=== PATIENT | female | born 1995 | race Caucasian/White ===

== ENCOUNTER 2024-02-23 17:36 | Emergency (ER) | payer OTHER, SELFPAY ==
[2024-02-23 17:40] VITALS: BP 139/87; PULSE 95; RESP 12; TEMP 36.8; O2SAT 99; BMI 27.7
--- NOTE | 2024-02-23 17:43 | DI.US.S_ITS ---
PROCEDURE: US PELVIC COMPLETE INDICATIONS: bleeding, pain/cramping LMP 01/21/24 TECHNIQUE: Real-time scanning was performed of the pelvic organs, with image documentation. Additional endovaginal scanning was necessary due to incomplete visualization of the adnexal and endometrial structures by transabdominal scanning. COMPARISON: None. FINDINGS: Uterus: Uterus is retroverted and normal in size at 7.4 x 6.4 x 4.7 cm. The myometrium is homogeneous. The endometrium measures 20 mm combined thickness. Thickened endometrium with small amount of fluid in the inferior portion. Anechoic structure within the endometrium measuring up to 3 millimeters, this is nonspecific and if it correlates with a gestational sac would be consistent with 4 weeks and 6 days. Ovaries: The right ovary measures 3.3 x 1.8 x 2.2 cm, with a calculated ovarian volume of 6.8 cc. The left ovary measures 3.8 x 2.7 x 2.4 cm, with a calculated ovarian volume of 12.9 cc. Thick-walled corpus luteal cyst in the left ovary measuring 2.0 centimeters. The ovaries have a normal sonographic appearance. Less than 12 follicles can be seen in each ovary. No adnexal masses are seen. Other: No pathologic free abdominal or pelvic fluid. Small free fluid, likely physiologic. IMPRESSION: Thickened endometrium measuring 20 millimeters. There is an anechoic structure within the endometrium measuring up to 3 millimeters, nonspecific and if this correlates with a gestational sac, this would be consistent with 4 weeks and 6 days. Recommend clinical correlation and follow-up. Possible left ovarian corpus luteal cyst measuring 2 centimeters. The ovaries are otherwise normal in appearance. We strive to produce accurate, complete, and clear reports of imaging services. To assist us in improving patient care, this report was composed using standard report templates and voice recognition software. Therefore, it may contain abnormal punctuation, insertions and/or omissions. Occasional wrong-word or sound-alike substitutions may occur. Though we review the report and make efforts to correct it, we do recommend that the report be read carefully in proper context to recognize any text inaccuracies. Dictated by: Boris Davis M.D. on 02/23/2024 at 19:03 Approved by: Boris Davis M.D. on 02/23/2024 at 19:06
[2024-02-23 18:16] LABS: Add Manual Diff / Slide Review NO; Basophils Absolute Auto 100 /uL (0-100); Basophils Percent Auto 0.8 % (0-2); Eosinophils Absolute Auto 100 /uL (0-450); Eosinophils Percent Auto 1.5 % (2-4); Hematocrit 40.6 % (36-46); Lymphocytes Absolute Auto 2500 /uL (1100-4500); Lymphocytes Percent Auto 28.7 % (25-40); Mean Corpuscular HGB Conc 34.6 % (30-36); Mean Corpuscular Hemoglobin 30.2 PG (26-34); Mean Corpuscular Volume 87.4 fL (80-100); Monocytes Absolute Auto 700 /uL (0-900); Monocytes Percent Auto 8.2 % (3-14); Neutrophils Absolute Auto 5200 /uL (1500-7000); Neutrophils Percent Auto 60.8 % (50-75); Platelet Count 259 X10^3/uL (150-400); Red Blood Cell Count 4.64 X10^6/uL (4.0-5.2); White Blood Cell Count 8.5 X10^3/uL (4.5-11.0)
[2024-02-23 18:33] LABS: Alanine Aminotransferase 16 IU/L (<35); Albumin 4.7 g/dL (3.5-5.0); Albumin Globulin Ratio 1.5 (1.0-2.8); Alkaline Phosphatase 63 U/L (38-126); Aspartate Aminotransferase 25 IU/L (14-36); BUN Creatinine Ratio 16.4 (6-22); Bilirubin Total 0.5 mg/dL (0.2-1.3); Blood Urea Nitrogen 10 mg/dL (7-17); Calcium 9.2 mg/dL (8.4-10.2); Carbon Dioxide 23 mmol/L (22-32); Chloride 105 mmol/L (98-107); Estimated Glomerular Filt Rate > 60 mL/min (>60); Globulin 3.1 g/dL (1.7-4.1); Glucose 104 mg/dL (70-100); HEMOLYSIS < 15 (0-50); Potassium 4.3 mmol/L (3.4-5.1); Sodium 137 mmol/L (137-145); Total Protein 7.8 g/dL (6.3-8.2)
[2024-02-23 18:50] LABS: HCG Quantitative /Beta subunit 327.73 mIU/mL
[2024-02-23 20:55] VITALS: BP 120/56; PULSE 89; RESP 18; TEMP 36.6; O2SAT 98
--- NOTE | 2024-02-23 23:08 | PC.NURSE ---
Assumed care from MEGHANN Stevens at this time. Updated pt on plan of care, understands Is frustrated with how long it is taking to receive results. Encouraged to express feelings.
--- NOTE | 2024-02-23 23:09 | ED_ITS ---
HPI - General Chief complaint: OB/Uterine Contractions Stated complaint: sent by JIM to rule out ectopic prgncy Time Seen by Provider: 02/23/24 21:41 Source: patient, RN notes reviewed and old records reviewed Mode of arrival: Ambulatory Limitations: no limitations History of Present Illness HPI Narrative: 28-year-old female proximally 4 weeks by dates last menstrual period of 01/21/2024 who presents with dark brown spotting and some mild cramping since Tuesday. Patient went to the clinic [facility] and was told to come here to rule out ectopic. She states no other symptoms. She states some mild cramping. Patient denies any other symptoms. She has not established with OB/Gynecology. Related Data Allergies Allergy/AdvReac Type Severity Reaction Status Date / Time No Known Drug Allergies Allergy Verified 02/23/24 17:43 Review of Systems Review of Systems ROS Unobtainable: All systems reviewed & are unremarkable except as noted in HPI and below Exam Narrative Exam Narrative: GENERAL: Alert and oriented x three, female in mild distress HEENT: Head normocephalic, atraumatic, EOMI, pupils reactive, face symmetric, moist mucous membranes NECK: Supple, full range of motion CARDIOVASCULAR: Regular rate and rhythm without murmurs, rubs or gallops. RESPIRATORY: Breath sounds equal bilaterally, no wheezes rales or rhonchi. ABDOMEN: Soft, nontender. Normoactive bowel sounds all 4 quadrants. No guarding or rebound, rigidity, no mass : No CVA tenderness EXTREMITIES: Normal range of motion, no clubbing or edema. Neurovascularly intact NEUROLOGICAL: Cranial nerves II through XII grossly intact. Moving all extremities SKIN: Warm, dry, no petechiae, no rashes or lesions. Initial Vital Signs Initial Vital Signs: Vital Signs Temperature 98.2 F 02/23/24 17:40 Pulse Rate 95 H 02/23/24 17:40 Respiratory Rate 12 02/23/24 17:40 Blood Pressure 139/87 02/23/24 17:40 Pulse Oximetry 99 02/23/24 17:40 Oxygen Delivery Method Room Air 02/23/24 17:40 Course Orders Ordered: ED Orders 02/23/24 22:45 Urine Culture Stat Urine Microscopic Stat Vital Signs Vital signs: Vital Signs - 8 hr 02/23/24 23:28 Temperature 98.4 F Pulse Rate 65 Respiratory Rate 15 Blood Pressure 126/87 Pulse Oximetry 98 Oxygen Delivery Method Room Air MDM - OB/Uterine Contractions Lab Data 02/23/24 17:59 02/23/24 17:59 Labs: Lab Results 02/23/24 02/23/24 Range/Units 17:59 22:45 WBC 8.5 (4.5-11.0) X10^3/uL RBC 4.64 (4.0-5.2) X10^6/uL Hgb 14.0 (12.0-16.0) g/dL Hct 40.6 (36-46) % MCV 87.4 (80-100) fL MCH 30.2 (26-34) PG MCHC 34.6 (30-36) % RDW 13.0 (11.6-14.8) % Plt Count 259 (150-400) X10^3/uL Neut % (Auto) 60.8 (50-75) % Lymph % (Auto) 28.7 (25-40) % Hart % (Auto) 8.2 (3-14) % Eos % (Auto) 1.5 L (2-4) % Baso % (Auto) 0.8 (0-2) % Neut # (Auto) 5200 (4998-8636) /uL Lymph # (Auto) 2500 (1774-1596) /uL Hart # (Auto) 700 (0-900) /uL Eos # (Auto) 100 (0-450) /uL Baso # (Auto) 100 (0-100) /uL Sodium 137 (137-145) mmol/L Potassium 4.3 (3.4-5.1) mmol/L Chloride 105 (98-107) mmol/L Carbon Dioxide 23 (22-32) mmol/L BUN 10 (7-17) mg/dL Creatinine 0.61 (0.52-1.04) mg/dL Estimated GFR > 60 (>60) mL/min BUN/Creatinine Ratio 16.4 (6-22) Glucose 104 H (70-100) mg/dL Calcium 9.2 (8.4-10.2) mg/dL Total Bilirubin 0.5 (0.2-1.3) mg/dL AST 25 (14-36) IU/L ALT 16 (<35) IU/L Alkaline Phosphatase 63 (38-126) U/L Total Protein 7.8 (6.3-8.2) g/dL Albumin 4.7 (3.5-5.0) g/dL Globulin 3.1 (1.7-4.1) g/dL Albumin/Globulin Ratio 1.5 (1.0-2.8) HCG, Quant 327.73 mIU/mL Urine RBC None seen (0-5/HPF) Urine WBC 0-1/hpf (0-5/HPF) Ur Squamous Epith Cells None seen (0-5/HPF) Urine Bacteria Moderate (10-30) H (None) Vol Urine Centrifuged 10ml (spun) Blood Type O Positive Antibody Screen Negative Urine Dip Bedside Urine Glucose Negative Bedside Urine Bilirubin - Negative Bedside Urine Ketone - Negative Urine Specific [place] 1.015 Bedside Urine Occult Blood +/- Bedside Urine pH 6.0 Bedside Urine Protein - Negative Bedside Urine Urobilinogen - Negative Bedside Urine Nitrite - Negative Bedside Urine Leukocytes - Negative Esterase Imaging Data US - OB: Radiologist's Impression: Anneliese Montoya I??28??F??1995 ? Allergy/Adv: No Known Drug Allergies (More??) Close Pelvis Ultrasound (Signed) Boris Davis - 02/23/24 Ultrasound (Cancelled) 02/23/24 [place] [address] Ultrasound Report Signed Patient: Anneliese Montoya I MR#: [id number] : 1995 Acct:[id number] Age/Sex: 28 / F Date of Service: 02/23/24 Loc: ED Accession Number: [id number] Procedure: US pelvic complete Ordering Provider: Mya Rios D.O. PROCEDURE: US PELVIC COMPLETE INDICATIONS: bleeding, pain/cramping LMP 01/21/24 TECHNIQUE: Real-time scanning was performed of the pelvic organs, with image documentation. Additional endovaginal scanning was necessary due to incomplete visualization of the adnexal and endometrial structures by transabdominal scanning. COMPARISON: None. FINDINGS: Uterus: Uterus is retroverted and normal in size at 7.4 x 6.4 x 4.7 cm. The myometrium is homogeneous. The endometrium measures 20 mm combined thickness. Thickened endometrium with small amount of fluid in the inferior portion. Anechoic structure within the endometrium measuring up to 3 millimeters, this is nonspecific and if it correlates with a gestational sac would be consistent with 4 weeks and 6 days. Ovaries: The right ovary measures 3.3 x 1.8 x 2.2 cm, with a calculated ovarian volume of 6.8 cc. The left ovary measures 3.8 x 2.7 x 2.4 cm, with a calculated ovarian volume of 12.9 cc. Thick-walled corpus luteal cyst in the left ovary measuring 2.0 centimeters. The ovaries have a normal sonographic appearance. Less than 12 follicles can be seen in each ovary. No adnexal masses are seen. Other: No pathologic free abdominal or pelvic fluid. Small free fluid, likely physiologic. IMPRESSION: Thickened endometrium measuring 20 millimeters. There is an anechoic structure within the endometrium measuring up to 3 millimeters, nonspecific and if this correlates with a gestational sac, this would be consistent with 4 weeks and 6 days. Recommend clinical correlation and follow-up. Possible left ovarian corpus luteal cyst measuring 2 centimeters. The ovaries are otherwise normal in appearance. We strive to produce accurate, complete, and clear reports of imaging services. To assist us in improving patient care, this report was composed using standard report templates and voice recognition software. Therefore, it may contain abnormal punctuation, insertions and/or omissions. Occasional wrong-word or sound-alike substitutions may occur. Though we review the report and make efforts to correct it, we do recommend that the report be read carefully in proper context to recognize any text inaccuracies. Dictated by: Boris Davis M.D. on 02/23/2024 at 19:03 Approved by: Boris Davis M.D. on 02/23/2024 at 19:06 [facility] Narrative Medical decision making narrative: 28-year-old female last menstrual period was 01/20, by dates patient is 4weeks, 5 days. Shows CBC with a white count of 8.5 hemoglobin of 14 platelets of 259, chemistries are normal glucose is 104 hCG is 327. Patient is O-positive. Point of care urine shows blood, microscopy shows Ultrasound shows thickened endometrium measuring 20 mm anechoic structure measuring up to 3 mm nonspecific and if this correlates with gestational sac would be consistent with a 4 weeks and 6 days possible left ovarian corpus luteal cyst measuring 2 cm ovaries are otherwise normal in appearance. Plan for follow up with ip counsel for recheck and repeat hCG in 24-48 hours. Discussed with patient return precautions and need for follow-up. Pelvic rest. Discharge Plan Departure Patient Disposition: Home Clinical Impression: Vaginal bleeding in Instructions: DI for Vaginal Bleeding During Activity Restrictions/Additional Instructions: Follow up with OBGYN for recheck, call 1st thing tomorrow morning to set up follow up appointment. Contact is included below. You should have a repeat hCG level in 24-48 hours. Your hCG level today was 327 mIU/mL You can take Tylenol up to a 1000 mg every 6 hours as needed for cramping or discomfort. You can use pads but avoid using tampons. No heavy lifting or sexual activity. Please return for rapidly worsening pain, going through more than a pad an hour, lightheadedness or passing out, persistent vomiting or other new or concerning changes. Referrals: Cynthia Ricardo MD [Physician] - Provider,Ann-Marie FERNANDEZ [Primary Care Provider] - Stand Alone Forms: Patient Portal/API
[2024-02-23 23:11] LABS: Bacteria Urine Moderate (10-30); RBC Urine None Seen (0-5/HPF); Squamous Epithelial Cell Urine None Seen (0-5/HPF); Urine Volume 10mL (spun); WBC Urine 0-1/HPF (0-5/HPF)
[2024-02-23 23:28] VITALS: BP 126/87; PULSE 65; RESP 15; TEMP 36.9; O2SAT 98
== END 2024-02-23 23:29 | disposition home or self-care (01) ==
PROVIDERS: Emergency Medicine; Emergency Provider Emergency Medicine
DX: O20.9 Hemorrhage in early pregnancy, unspecified (principal); Z3A.01 Less than 8 weeks gestation of pregnancy
CPT/HCPCS: 76856; 80053; 81003; 81015; 84702; 85025; 86850; 86900; 86901; 87086; 99282; 99284

== ENCOUNTER → 2024-02-25 10:41 | Outpatient (CLI) | payer OTHER, SELFPAY ==
[2024-02-25 12:24] LABS: HCG Quantitative /Beta subunit 659.48 mIU/mL
== END ==
PROVIDERS: Referring Provider Obstetrics & Gynecology; Visit Provider Obstetrics & Gynecology
DX: O46.90 Antepartum hemorrhage, unspecified, unspecified trimester (principal)
CPT/HCPCS: 36415; 84702

== ENCOUNTER → 2024-02-27 17:05 | Outpatient (CLI) | payer OTHER, SELFPAY ==
[2024-02-27 18:01] LABS: HCG Quantitative /Beta subunit 1910.4 mIU/mL
== END ==
PROVIDERS: Referring Provider Obstetrics & Gynecology; Visit Provider Obstetrics & Gynecology
DX: O46.90 Antepartum hemorrhage, unspecified, unspecified trimester (principal)
CPT/HCPCS: 36415; 84702

== ENCOUNTER → 2024-03-26 15:10 | Outpatient (CLI) | payer OTHER, SELFPAY ==
[2024-03-26 18:35] LABS: Urine N gonorrhoeae NOT DETECTED
[2024-03-26 18:48] LABS: Urine Chlamydia NOT DETECTED
== END ==
PROVIDERS: Visit Provider Specialist
DX: Z11.3 Encounter for screening for infections with a predominantly sexual mode of transmission (principal); Z3A.09 9 weeks gestation of pregnancy
CPT/HCPCS: 87491; 87591

== ENCOUNTER → 2024-04-26 09:25 | Outpatient (CLI) | payer OTHER, SELFPAY ==
[2024-04-26 11:03] LABS: Add Manual Diff / Slide Review NO; Basophils Absolute Auto 0 /uL (0-100); Basophils Percent Auto 0.2 % (0-2); Eosinophils Absolute Auto 0 /uL (0-450); Eosinophils Percent Auto 0.4 % (2-4); Hematocrit 32.5 % (36-46); Lymphocytes Absolute Auto 1600 /uL (1100-4500); Mean Corpuscular HGB Conc 36.9 % (30-36); Mean Corpuscular Hemoglobin 31.5 PG (26-34); Mean Corpuscular Volume 85.3 fL (80-100); Monocytes Absolute Auto 600 /uL (0-900); Monocytes Percent Auto 5.6 % (3-14); Natera Collection Specimen Collected; Neutrophils Absolute Auto 8400 /uL (1500-7000); Neutrophils Percent Auto 78.8 % (50-75); Platelet Count 268 X10^3/uL (150-400); Red Blood Cell Count 3.81 X10^6/uL (4.0-5.2); Red Cell Distribution Width 13.2 % (11.6-14.8); White Blood Cell Count 10.6 X10^3/uL (4.5-11.0)
[2024-04-26 11:39] LABS: Free T4, Direct Thyroxine 0.97 ng/dL (0.78-2.19)
[2024-04-26 11:53] LABS: Thyroid Stimulating Hormone 1.64 uIU/mL (0.47-4.68)
[2024-04-26 12:59] LABS: Iron 97 ug/dL (37-170)
[2024-04-26 15:00] LABS: Hepatitis B Surface Antigen NEGATIVE s/c (NEGATIVE)
[2024-04-26 15:20] LABS: HIV 1 & 2 Ab/Ag 4th Gen Combo NEGATIVE (NEGATIVE); Hep C Virus Ab w/Reflex Quant NEGATIVE s/c (NEGATIVE)
[2024-04-27 06:04] LABS: RPR Screen Non Reactive (Non Reactive)
[2024-04-27 08:36] LABS: Varicella IgG Antibody 253 index (Immune >165)
== END ==
PROVIDERS: Specialist; Referring Provider Obstetrics & Gynecology; Visit Provider Obstetrics & Gynecology
DX: O30.031 Twin pregnancy, monochorionic/diamniotic, first trimester (principal); Z80.8 Family history of malignant neoplasm of other organs or systems; Z3A.13 13 weeks gestation of pregnancy
CPT/HCPCS: 36415; 80055; 83540; 84439; 84443; 86787; 86803; 86850; 86900; 86901; 87389

== ENCOUNTER → 2024-06-08 09:21 | Outpatient (CLI) | payer OTHER, SELFPAY ==
[2024-06-11 13:36] LABS: AFP Value 129.4 ng/mL (.); Gest Age on Col Date 19.9 weeks (.); Insulin Dep Diabetes No (.); OSBR Risk 1IN 771 (.); Results Report (.); Test Results *Screen Negative* (.)
== END ==
PROVIDERS: Referring Provider Obstetrics & Gynecology; Visit Provider Obstetrics & Gynecology
DX: Z34.82 Encounter for supervision of other normal pregnancy, second trimester (principal); Z3A.19 19 weeks gestation of pregnancy
CPT/HCPCS: 36415; 82105

== ENCOUNTER → 2024-07-13 10:07 | Outpatient (CLI) | payer OTHER, SELFPAY ==
[2024-07-13 11:42] LABS: Appearance Urine UA CLEAR; Bilirubin Urine UA NEGATIVE (NEGATIVE); Color Urine UA YELLOW; Glucose Urine UA NEGATIVE (Negative); Ketones Urine UA NEGATIVE (NEGATIVE); Leukocyte Esterase Urine UA 2+ (NEGATIVE); Nitrite Urine UA NEGATIVE (Negative); Occult Blood Urine UA NEGATIVE (Negative); Protein Urine UA NEGATIVE (Negative); Specific Gravity Urine UA <=1.005 (1.000-1.035); Urobilinogen Urine UA 0.2 E.U./dL (0.2)
[2024-07-13 12:01] LABS: pH Urine UA 6.5 (4.5-8.0)
[2024-07-13 12:07] LABS: Bacteria Urine Few (2-10); Culture Indicated Urine Cult Not Indicated; RBC Urine 1-5/HPF (0-5/HPF); Squamous Epithelial Cell Urine 10-30 /HPF (0-5/HPF); Urine Volume 10mL (spun); WBC Urine 10-30/HPF (0-5/HPF)
[2024-07-13 12:24] LABS: Hematocrit 28.4 % (36-46)
[2024-07-13 12:47] LABS: GTT (PREG) 1 Hour PP 50gm Dose 146 mg/dL (76-139)
== END ==
PROVIDERS: Referring Provider Obstetrics & Gynecology; Visit Provider Obstetrics & Gynecology
DX: Z34.02 Encounter for supervision of normal first pregnancy, second trimester (principal); R39.15 Urgency of urination; R30.9 Painful micturition, unspecified; Z3A.26 26 weeks gestation of pregnancy
CPT/HCPCS: 36415; 81001; 82950; 85014; 85018

== ENCOUNTER → 2024-07-16 08:03 | Outpatient (CLI) | payer OTHER, SELFPAY ==
[2024-07-16 09:22] LABS: Glucose Fasting Gestational 73 mg/dL (76-95)
[2024-07-16 09:55] LABS: Glucose 1 Hour Gest 181 mg/dL (76-180)
[2024-07-16 11:01] LABS: Glucose 2 Hour Gest 157 mg/dL (76-155)
[2024-07-16 11:48] LABS: Glucose Tol Interp,Gestational INTERPRETATION
[2024-07-16 11:54] LABS: Glucose 3 Hour Gest 141 mg/dL (76-140)
== END ==
PROVIDERS: Referring Provider Obstetrics & Gynecology; Visit Provider Obstetrics & Gynecology
DX: O99.810 Abnormal glucose complicating pregnancy (principal)
CPT/HCPCS: 36415; 82951; 82952

== ENCOUNTER → 2024-07-24 07:32 | Outpatient (CLI) | payer OTHER, SELFPAY ==
--- NOTE | 2024-07-24 15:02 | DIAB.GDA ---
Initial Gestational Diabetes Assessment Name: Anneliese Montoya I Date: 07/24/24 Time: 735-830a Dx: Gestational Diabetes Provider: Davion/Costa STEFANIE: 10/27/24 Weeks: 26 Anneliese presents for initial visit. PMH reported includes PCOS as a teen and adult, and insulin resistance as a teenager with Metformin therapy. Metformin d/c'd 4-5 months after start around age 14-15y/o. Endorses FH of insulin resistance, unclear if PDM or DM. Anneliese's spouse is in the , and they are moving to [place] next week. This will be our only visit. She is with twins. Diet recall: 830a: coffee black, milk, oatmeal OR milk with ww cereal, fruit OR eggs with ww indonesian muffin 1030-1130a: string cheese with apples and nuts 12-130p: 1c pasta with veg and protein OR salad with meat and cheese 4-430p: pb or string cheese or fruit 6p-730p: protein and veg OR pasta and protein 9p: cookie OR Bel[place]ian yogurt with nuts and granola OR vanilla ice cream water, sparkling water, coffee, may share soda when eating out with Sometimes donuts at breakfast. Anthropometrics: Ht: 62 Wt: 164# Prepregnancy wt: 154# Physical Activity: No program pre and worries about starting one now. Tries to reduce sedentary time. Tries to move more at home and while grocery shopping. Self-Monitoring Blood Glucose: Started checking FBG and 1 hour. FBG all in goal. 1/7 elevated pc breakfast reading after high CHO intake of banana and donut. 2/7 elevated pc lunch readings also after high CHO intake. All pc dinner readings currently in goal. Date Pre Post Pre Post Pre Post HS 07/17 72 70 95 95 07/18 76 95 149 1h 113 2h 98 1h 94 2h 07/19 73 129 97 100 07/20 79 90 90 95 07/21 80 77 138 112 07/22 80 70 88 110 07/23 77 93 94 101 07/24 70 Diabetes Medications: none Pertinent Labs: Screen: 146 OGTT: 73, 181 H, 157 H, 141 H Nutrition Rx: Carbohydrates: Meal: 45-60g lunch and dinner; 30-45g breakfast Snack: 15-30g Nutrition Diagnosis: Altered nutrition related lab value r/t GDM dx aeb recent OGTT Excessive CHO intake r/t new dx and no previous MNT aeb pt report, elevated pc BG and diet recall Intervention: This participant was very receptive. Provided appropriate educational handouts. Discussed the following topics: GDM pathophysiology and impact of hyperglycemia on mom and baby Risk for T2DM for mom and baby in the future Ways to reduce risk T2DM Plate Method, meal timing, carb counting, pairing macronutrients and spreading out CHO for better BG management Blood glucose goals (FBG: <95 and 1 hour <140 mg/dL or 2 hour <120 mg/dl); importance of checking 4x per day (FBG and pc) Impact of macronutrients on blood glucose Recommended servings for carbohydrates at meals and snacks Brainstormed appropriate meal plan based on her food preferences Role of physical activity and following provider guidelines for safety Recent blood sugar results and impact of food and hormones Review of macronutrient recommendations during Benefits, resources, and nutrition for recommendations for nutrition and physical activity recommendations for T2DM risk reduction OGTT at 6-12 weeks Checking blood sugars twice per week (goal: fasting <100 mg/dL and 2 hour pc <140 mg/dL) until 6 week checkup HgA1c q 1-3 years. Goals: Send BG in one and two weeks Keep meals within carb recs If OB agrees, incorporate 10 min activity after larger meals Follow-up: ELEUTERIO OLIVIA follow-up in one week via messaging. Anneliese plans to establish care in [place] after next week's move. Encouraged her to reach out to this RD with questions or BG checks until that time. She agreed. Jelena Zamora RDN, [facility] Certified Diabetes Care and [employer] Time Sales Supervisor T: [phone] F: [phone] [email or web address] Thank you for this referral
== END ==
PROVIDERS: Referring Provider Obstetrics & Gynecology
DX: O24.419 Gestational diabetes mellitus in pregnancy, unspecified control (principal); O26.892 Other specified pregnancy related conditions, second trimester; E88.819 Insulin resistance, unspecified; Z3A.26 26 weeks gestation of pregnancy; Z71.3 Dietary counseling and surveillance
CPT/HCPCS: 97802

== ENCOUNTER → 2024-07-27 12:14 | Outpatient (CLI) | payer OTHER, SELFPAY ==
[2024-07-27 12:39] LABS: Hematocrit 29.2 % (36-46); Hemoglobin 10.2 g/dL (12.0-16.0); Mean Corpuscular Hemoglobin 31.5 PG (26-34); Platelet Count 242 X10^3/uL (150-400); Red Blood Cell Count 3.24 X10^6/uL (4.0-5.2); Red Cell Distribution Width 14.3 % (11.6-14.8); White Blood Cell Count 12.9 X10^3/uL (4.5-11.0)
[2024-07-27 12:40] LABS: Add Manual Diff / Slide Review YES
[2024-07-27 12:54] LABS: HEMOLYSIS < 15 (0-50); Iron 94 ug/dL (37-170)
[2024-07-27 13:04] LABS: Percent Iron Saturation 25 % (15-50); Total Iron Binding Capacity 383 ug/dL (265-497); Transferrin 355 mg/dL (206-381)
[2024-07-27 13:19] LABS: Neutrophils Absolute Manual 10449 /uL (3000-5900); Total Cells Counted 100
[2024-07-27 13:21] LABS: RBC Morphology Normal Morphology
== END ==
PROVIDERS: Referring Provider Obstetrics & Gynecology; Visit Provider Obstetrics & Gynecology
DX: O30.032 Twin pregnancy, monochorionic/diamniotic, second trimester (principal); O99.012 Anemia complicating pregnancy, second trimester
CPT/HCPCS: 36415; 83540; 83550; 85007; 85025

== ENCOUNTER 2024-07-27 12:25 | Outpatient (CLI) | payer OTHER, SELFPAY | END 2024-07-27 13:25 | disposition home or self-care (01) | LOC: LABOR 12:51 → OB 07-30 11:46 | PROVIDERS: Referring Provider Obstetrics & Gynecology; Visit Provider Obstetrics & Gynecology | DX: O30.032 Twin pregnancy, monochorionic/diamniotic, second trimester (principal); O99.012 Anemia complicating pregnancy, second trimester; Z3A.26 26 weeks gestation of pregnancy | CPT/HCPCS: 36415; 59025; 83540; 83550; 85007; 85025; G0378; G0379 ==